=== PATIENT | male | born 1970 | race Two or more races ===

== ENCOUNTER 2021-10-04 11:37 | Emergency (ER) | payer OTHER ==
[~2021-10-04] VITALS: Ht 182.9 cm; Wt 99.8 kg
[2021-10-04 16:14] VITALS: BP 124/85
[2021-10-04] MEDS ORDERED: KETOROLAC TROMETH 60MG/2ML VIAL IM ONE (17:45)
== END 2021-10-04 17:56 | disposition home or self-care (01) ==
LOC: ER 11:37
DX: S32.028A Other fracture of second lumbar vertebra, initial encounter for closed fracture (principal); S32.038A Other fracture of third lumbar vertebra, initial encounter for closed fracture; E11.9 Type 2 diabetes mellitus without complications; G89.29 Other chronic pain; M54.9 Dorsalgia, unspecified; X50.1XXA Overexertion from prolonged static or awkward postures, initial encounter; Y93.89 Activity, other specified; Y92.89 Other specified places as the place of occurrence of the external cause; Y99.8 Other external cause status
CPT/HCPCS: 72100; 93005